=== PATIENT | female | born 1970 | race Caucasian/White ===

== ENCOUNTER 2019-11-22 13:07 | Emergency (ER) | payer OTHER, SELFPAY ==
[2019-11-22 13:45] VITALS: BP 127/73; PULSE 60; RESP 19; TEMP 37.1; O2SAT 99; BMI 20.2
--- NOTE | 2019-11-22 13:51 | DI.RAD.S_ITS ---
PROCEDURE: XR CHEST 2V INDICATIONS: cough TECHNIQUE: 2 views of the chest were acquired. COMPARISON: None. FINDINGS: Surgical changes and devices: None. Lungs and pleura: Lungs are clear. No pleural effusions or pneumothorax. Mediastinum: Mediastinal contours are normal. Heart size is normal. Bones and chest wall: No suspicious bony abnormalities. Soft tissues appear unremarkable. IMPRESSION: No acute cardiopulmonary findings. Dictated by: Diamond Armendariz M.D. on 11/22/2019 at 13:11 Approved by: Diamond Armendariz M.D. on 11/22/2019 at 13:12
--- NOTE | 2019-11-22 19:14 | ED_ITS ---
HPI - URI/Sore Throat General Chief Complaint: Upper Respiratory Symptoms Stated Complaint: per phys poss laryn/ bacterial infection Time Seen by Provider: 11/22/19 18:09 Source: patient Mode of arrival: Family Vehicle Limitations: no limitations History of Present Illness HPI Narrative: 49-year-old female former smoker with noncontributory medical history presents with her in the chief complaint of about a week's worth of runny nose, sneezing, sore throat with production of off colored sputum in the mornings only. She has had no nausea, vomiting or diarrhea. She has had no fever or chills. She has very little cough boat when she does it is dry and hacking. Over the past few days she has lost her voice but denies any significant pain with swallowing or sensation of mass in her throat. This [facility] patient developed some redness of her right eye with matting and some discharge. MD Complaint: cough, sore throat, rhinorrhea and nasal congestion Onset (ago): week(s) Duration: constant Relieving factors: nothing Exacerbating factors: nothing Description of mucous: green Able to tolerate fluids by mouth: Yes Treatments prior to arrival: acetaminophen, ibuprofen and cold medicine Related Data Previous Rx's Medication Instructions Recorded benzonatate [Tessalon Perles] 100 mg PO BID PRN #20 cap 11/22/19 Allergies Allergy/AdvReac Type Severity Reaction Status Date / Time AMOXICILLIN Allergy Mild Uncoded 11/22/19 13:50 From VICODIN Allergy Mild Uncoded 11/22/19 13:50 IODINE Allergy Mild Uncoded 11/22/19 13:50 SULFA Allergy Mild Uncoded 11/22/19 13:50 Review of Systems Constitutional Constitutional: Denies chills, Denies fatigue, Denies fever(s), Denies frequent falls, Denies lethargy and Denies weakness Eyes Eyes: Denies change in vision, Reports eye discharge, Denies irritation and Denies loss of vision ENT Ears, Nose, Mouth, and Throat: Reports change in voice, Denies dizziness, Reports nasal congestion, Denies neck pain, Denies sore throat and Denies throat swelling Cardiovascular Cardiovascular: Denies chest pain, Denies irregular heart rhythm, Denies lightheadedness, Denies palpitations, Denies dyspnea, Denies dyspnea on exertion and Denies orthopnea Respiratory Respiratory: Reports cough, Denies dyspnea, Denies dyspnea on exertion and Denies wheezing Gastrointestinal Gastrointestinal: Denies abdominal pain, Denies change in bowel habits, Denies diarrhea, Denies nausea and Denies vomiting Genitourinary Genitourinary: Denies hematuria, Denies flank pain, Denies urinary incontinence and Denies urinary urgency Musculoskeletal Musculoskeletal: Denies back pain, Denies muscle weakness, Denies neck pain, Denies numbness and Denies tingling Integumentary/Breasts Skin/Breast: Denies pruritus, Denies erythema, Denies rash and Denies wounds Neurologic Neurologic: Denies behavioral changes, Denies confusion, Denies dizziness, Denies frequent falls, Denies loss of vision, Denies numbness, Denies tingling and Denies weakness Psychiatric Psychiatric: Denies anxiety, Denies behavioral changes, Denies confusion, Denies depression, Denies homicidal ideation and Denies suicidal ideation Endocrine Endocrine: Denies fatigue, Denies flushing and Denies palpitations Hematologic/Lymphatic Hematologic/Lymphatic: Denies easy bruising Allergic/Immunologic Allergic/Immunologic: Denies urticaria, Denies throat swelling and Denies wheezing Patient History Social History Smoking Status: Former smoker Smoking Status: Former smoker alcohol intake frequency: holidays/special occasions only Substance Use Type: marijuana Exam Narrative Exam Narrative: GENERAL: [49] year old patient appears stated age. Well- nourished, well-developed patient, in mild distress. HEAD: Atraumatic. Normocephalic. EYES: Pupils equal round and reactive. Extraocular motions intact. R eye scleral injection, minimal exudate ENT: Nose without bleeding, purulent drainage. clear postnasal drip, without tonsillar hypertrophy or exudate. Airway patent. NECK: Trachea midline. Non tender CARDIOVASCULAR: Regular rate and rhythm without murmurs, gallops, or rubs. RESPIRATORY: Clear to auscultation. Breath sounds equal bilaterally. No wheezes, rales, or rhonchi. GASTROINTESTINAL: Abdomen soft, non-tender, nondistended. EXTREMITIES: No edema or joint tenderness. BACK: Nontender without deformity or crepitance. No flank tenderness. NEURO: AOx3. SKIN: No rash or erythema of visible areas Initial Vital Signs Initial Vital Signs: Vital Signs Temperature 98.7 F 11/22/19 13:45 Pulse Rate 60 11/22/19 13:45 Respiratory Rate 19 11/22/19 13:45 Blood Pressure 127/73 11/22/19 13:45 Pulse Oximetry 99 11/22/19 13:45 Course Orders Ordered: Discontinued Medications Erythromycin (Erythromycin Ophth Oint) 1 applic EYE-RIGHT NOW ONE Stop: 11/22/19 19:00 Last Admin: 11/22/19 19:34 Dose: 1 applic Documented by: LOLY Vital Signs Vital signs: Vital Signs - 8 hr 11/22/19 13:45 Temperature 98.7 F Pulse Rate 60 Respiratory Rate 19 Blood Pressure 127/73 Pulse Oximetry 99 MDM - URI/Sore Throat Lab Data Labs: Point of Care Testing Rapid Strep A Negative Discharge Plan Departure Patient Disposition: Home Clinical Impression: Acute viral pharyngitis Conjunctivitis Qualifiers: Conjunctivitis type: acute Acute conjunctivitis type: bacterial Laterality: right Qualified Code(s): H10.31 - Unspecified acute conjunctivitis, right eye Discharge Date/Time: 11/22/19 20:51 Instructions: DI for Viral Pharyngitis Activity Restrictions/Additional Instructions: *You have been diagnosed with [acute viral pharyngitis] *What to do: *Take medications as directed *Follow up with your primary care provider in 2-3 days, call for an appointment. Let them know you were seen in the Emergency Department and that we ask that you be seen in follow up *Return to ER if you should have any new, worsening or concerning symptoms Prescriptions: New benzonatate [Tessalon Perles] 100 mg capsule 100 mg PO BID PRN (Reason: cough) Qty: 20 RF: 0
[2019-11-22] MEDS: ERYTHROMYCIN OPHTH 1 GM OINT 1 APPLIC EYE-RIGHT (19:34)
== END 2019-11-22 20:51 | disposition home or self-care (01) ==
PROVIDERS: Emergency Provider Emergency Medicine
DX: J02.9 Acute pharyngitis, unspecified (principal); H10.31 Unspecified acute conjunctivitis, right eye; R05 Cough
CPT/HCPCS: 71046; 87880; 99283

== ENCOUNTER → 2022-08-30 14:33 | Outpatient (CLI) | payer OTHER, SELFPAY ==
[2022-08-30 15:43] LABS: Add Manual Diff / Slide Review NO; Basophils Absolute Auto 100 /uL (0-100); Basophils Percent Auto 0.8 % (0-2); Eosinophils Absolute Auto 400 /uL (0-450); Eosinophils Percent Auto 6.3 % (2-4); Hemoglobin 12.1 g/dL (12.0-16.0); Lymphocytes Absolute Auto 2700 /uL (1100-4500); Lymphocytes Percent Auto 40.1 % (25-40); Mean Corpuscular HGB Conc 34.6 % (30-36); Mean Corpuscular Hemoglobin 32.6 PG (26-34); Mean Corpuscular Volume 94.1 fL (80-100); Monocytes Absolute Auto 500 /uL (0-900); Monocytes Percent Auto 6.9 % (3-14); Neutrophils Absolute Auto 3100 /uL (1500-7000); Neutrophils Percent Auto 45.9 % (50-75); Platelet Count 249 X10^3/uL (150-400); Red Blood Cell Count 3.72 X10^6/uL (4.0-5.2); White Blood Cell Count 6.8 X10^3/uL (4.5-11.0)
[2022-08-30 15:48] LABS: Hemoglobin A1C% w Est Avg Glu 5.3 % (4.0-6.0)
[2022-08-30 15:52] LABS: BUN Creatinine Ratio 25.4 (6-22); Blood Urea Nitrogen 16 mg/dL (7-17); Calcium 8.8 mg/dL (8.4-10.2); Carbon Dioxide 27 mmol/L (22-32); Chloride 102 mmol/L (98-107); Estimated Glomerular Filt Rate > 60 mL/min (>60); Glucose 108 mg/dL (70-100); HEMOLYSIS < 15 (0-50); Potassium 3.6 mmol/L (3.4-5.1); Sodium 139 mmol/L (137-145)
== END ==
PROVIDERS: PCP Family Medicine; Referring Provider Orthopaedic Surgery Orthopaedic Surgery of the Spine; Visit Provider Orthopaedic Surgery Orthopaedic Surgery of the Spine
DX: Z01.818 Encounter for other preprocedural examination (principal); Z01.812 Encounter for preprocedural laboratory examination; R73.9 Hyperglycemia, unspecified
CPT/HCPCS: 36415; 80048; 83036; 85025; 93005; 93010

== ENCOUNTER → 2022-09-01 13:34 | Outpatient (CLI) | payer OTHER, SELFPAY ==
[2022-09-01 14:34] LABS: COVID19 -Nasal RAPID Negative (Negative)
== END ==
PROVIDERS: PCP Family Medicine; Referring Provider Orthopaedic Surgery Orthopaedic Surgery of the Spine; Visit Provider Orthopaedic Surgery Orthopaedic Surgery of the Spine
DX: Z20.822 Contact with and (suspected) exposure to COVID-19 (principal)
CPT/HCPCS: 87635; C9803

== ENCOUNTER 2022-09-04 06:01 | Inpatient (IN) | payer OTHER, SELFPAY ==
[2022-08-30 14:55] VITALS: BMI 26.4
[2022-09-04] VITALS (16 sets, daily range): BP systolic 101–149; BP diastolic 67–102; PULSE 65–91; RESP 10–19; TEMP 36.1–36.6; O2SAT 93–100; BMI 26.4
[2022-09-04] MEDS: LACTATED RINGERS 1,000 ML 42 ML IV (07:19)
--- NOTE | 2022-09-04 07:47 | PM.PREOP ---
Pre-operative Note COVID-19 COVID-19 status: Negative Result date/Date tested (Pos, Neg/Pending): 09/03/22 Criteria for continued procedure: Expected advancement of disease process, Possibility delay results in more complex future surgery or treatment, Increased loss of function, Continuing or worsening of significant or severe pain, Deterioration of the patient's condition or overall health and Delay expected to result in less-positive ultimate med/surg outcome Interval Note History & Physical reviewed/Exam performed by Physician: Yes Changes to H&P: No
[2022-09-04] MEDS: SCOPOLAMINE 1 PATCH TOP (07:49)
[2022-09-04] MEDS: CEFAZOLIN 2 GM/100 ML PREMIX 100 ML IV (08:01)
--- NOTE | 2022-09-04 08:36 | SUR.OPER ---
Supine, head on gel donut. Arms padded with gel pads, tucked at sides, towel roll under shoulders. Safety belt at thigh. Legs uncrossed. Tape to forehead and shoulders to bed.
[2022-09-04] MEDS: BUPIVACAINE 0.5% W/ EPI (PF) 30 ML VIAL INJ (08:58)
--- NOTE | 2022-09-04 10:51 | DI.RAD.S_ITS ---
PROCEDURE: XR CERVICAL SPINE 2V OR 3V INDICATIONS: C4-5, C5-6, C6-7 ACDF TECHNIQUE: 3 intraoperative fluoroscopic view(s) of the cervical spine were acquired. COMPARISON: None. FINDINGS: 3 fluoroscopic views of the cervical spine were acquired intraoperatively. There are postsurgical changes from anterior cervical discectomy and fusion from C4 through C7. Interbody disc spacers/grafts noted at C4-5, C5-6, and C6-7. Postoperative alignment appears anatomic. Patient is intubated. IMPRESSION: Intraoperative fluoroscopic support for ACDF of the cervical spine from C4 through C7. Please see separate operative note for further details. Dictated by: Carloz Pack M.D. on 09/04/2022 at 11:50 Approved by: Carloz Pack M.D. on 09/04/2022 at 11:52
[2022-09-04] MEDS: fentaNYL 100 MCG/2 ML INJ IV ×2 (11:01→11:10)
[2022-09-04] MEDS: ONDANSETRON 4 MG/2 ML INJ IV (11:04)
--- NOTE | 2022-09-04 11:12 | PM.OP.1 ---
Operative Date/Time/Diagnoses Date of procedure: 09/04/22 Time of procedure: 07:40 Pre-op diagnosis: 1. C4-5, C5-6, C6-7 spinal stenosis 2. C4-5, C5-6, C6-7 spondylosis with radiculopathy Post-op diagnosis: same Procedure & Clinicians Procedure: 1. C4-5 C5-6 C6-7 anterior cervical diskectomy and fusion 2. C4-5 C5-6 C6-7 anterior interbody cage placement 3. C4-5 C5-6 C6-7 anterior instrumentation with plate and screw placement in C4-C5-C6 and C7 vertebrae 4. Utilization of microsurgical technique and operating microscope Same procedure as scheduled: Yes Indications: Patient has been having chronic neck pain and worsening cervical radiculopathy. Patient failed multiple conservative management with worsening pain weakness and numbness in her upper extremity. Patient has been having difficulty performing activity of daily living. After discussing risks benefits of treatment options, patient elected proceed with surgery. Surgeon: Lucretia Tracey Transplant Nurse Practitioner: Mary Ann Hector Click Yes if Unassisted: No Anesthesia Type: General Operative Notes Closure Type: primary Specimen(s): none sent Prosthetic devices, grafts, tissues, transplants, or devices: Globus Extend Plate, HedronC cages Applied: catheter Estimated Blood Loss (mL): 10 Blood products transfused: none Procedure in detail: Patient was seen in the preoperative area. Risks and benefits of the surgery was discussed with the patient. Operative consent was obtained and placed in the chart. Patient was then taken to the operative room. Prophylactic antibiotic was given less than 0.5 hr prior to skin incision. General anesthesia was administered. Patient was placed into a supine position on her radiolucent table. Bilateral shoulders were taped down to allow proper C-arm imaging. Anterior cervical area was prepped and draped in a sterile fashion. Time-out was performed at this time. Using lateral C-arm imaging, the level between C4 and C7 was identified and marked on patient's neck. A oblique incision from midline towards medial border of sternocleidomastoid muscle was made. The platysma muscle was incised in line with skin incision. Metzenbaum scissor was used to develop the plane between the medial border of sternocleidomastoid and the strap muscles medially. The carotid sheath and its contents were identified and protected behind the hand-held retractor during the entire case. The plane between the carotid sheath and strap muscles was developed with Metzenbaum scissors. Dissection was made down to the level of the anterior cervical fascia. Longus colli muscle was incised on the anterior aspect of vertebral bodies bilaterally from C4-C7. Spinal needle was placed into the C4-5 disc space and confirmed with lateral C-arm imaging. Self-retaining retractors were then placed protecting the carotid sheath the sheath laterally and the esophagus medially while exposing the surgical field between C4-C7 vertebrae. Using microsurgical technique and operative microscope, anterior cervical diskectomy was performed at C4-5 C5-6 and C6-7 level. This was done by removing the disc material, removing the anterior and posterior osteophytes posterior longitudinal ligaments along with performing bilateral foraminotomies at all 3 levels. Patient was found to have severe central and foraminal stenosis at all 3 levels. Patient's stenosis was fully decompressed after decompression was completed. After the diskectomy was completed, 3 anterior interbody cages were obtained. The cages were packed with globus Trifecta bone grafting material. One cage each along with the bone grafting material was then packed into the interbody spaces from C4-C7 with one cage into each interbody level. Patient had large anterior osteophytes at C5-C6 and C7 vertebrae. Large osteophytes was removed using Leksell rongeur in order to place anterior cervical plate. After the cages were placed, the anterior cervical plate was stabilized to the C4-C7 vertebrae using 2 screws at each each level. Total 8 screws were placed. After confirming placement of the hardware with AP and lateral C-arm imaging, the screws were locked into the plate using the locking mechanism and torque limiting screwdriver. After the hardware was placed and confirmed with AP and lateral C-arm imaging, the wound was irrigated with sterile normal saline. Hemostasis was accomplished using bipolar cautery. Carotid sheath contents and the esophagus was inspected and visualized and identified to be well protected throughout the entire case prior to closure. Platysma muscle and the subcutaneous tissue was closed with 2-0 Vicryl. The skin was closed with 4-0 Monocryl and Steri-Strips. Patient tolerated the procedure well. Patient was transferred recovery room in stable condition. There were no complications. Complications: none Post-operative Condition: stable Disposition: PACU Plan for aftercare: Admit to inpatient hospital
[2022-09-04] MEDS: OXYCODONE/ACETAMINOPHEN 5/325 TABLET 1 TAB PO (11:24)
[2022-09-04] MEDS: hydrOXYzine pamoate 25 MG CAPSULE PO ×3 (11:49→22:54)
--- NOTE | 2022-09-04 12:10 | SUR.PHASEI ---
Pt transferred to room 218 in bed by this RN. Pt awake, alert, soft colar in place. Trachea midline. 1 bag of belongings. SBAR report to Jacque RN with bedside handoff.
[2022-09-04] MEDS: HYDROMORPHONE 0.5 MG INJ IV ×2 (12:12→15:47)
[2022-09-04] MEDS: SODIUM CHLORIDE 0.9% 1,000 ML 100 ML IV ×2 (12:13→22:59)
[2022-09-04] MEDS: MAG HYDROX/ALUM/SIMETH 30 ML UDC PO (13:01)
[2022-09-04] MEDS: MAGNESIUM HYDROXIDE 30 ML UDC PO (13:01)
--- NOTE | 2022-09-04 15:25 | PT.IIE ---
Current Diagnoses Spinal stenosis, cervical region (09/04/22) Other cervical disc displacement, unspecified cervical region (09/04/22) Surgery Performed Operation Date: 09/04/22 07:45 Actual Procedures p C4-5, C5-6, C6-7 ACDF w. anterior instrumentation - Lucretia Tracey MD Surgical History (Last Updated 08/30/22 @ 15:05 by Mery Glass, RN) History of Hx of appendectomy Hx of shoulder surgery S/P epidural steroid injection Medical History (Last Updated 08/30/22 @ 15:05 by Mery Glass RN) Arthritis Cervical disc herniation Cervical spinal stenosis Thyroid disease Physical Therapy Inpatient Evaluation/Re-Eval M1 PT/OT-IP Prior Functional Status Start: 09/04/22 13:34 Freq: NEEDED Status: Active Protocol: Document 09/04/22 15:25 AW (Rec: 09/04/22 15:59 AW [id number]) Medical Review Prior Functional Status Medical History Reviewed Yes Communication WNL Mobility and Gait Independent Activities of Daily Living and IADL's Independent Social History Household Members spouse Living Arrangements House Number of Floors (Floors) One Floor Number of Stairs To Enter/Railing? 3 PRISCILLA no rail Home Environment Standard Height Toilet,Tub/ Shower Home Equipment Grab Bars In Shower Employment Status [employer] Employed Additional Social History Comment Pt lives in [place] with her spouse, Alex. 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 Her spouse recently retired from the [employer] and does not start a new job until early September. He will be available and able to assist as needed. M2 PT-IP Current Condition Start: 09/04/22 13:34 Freq: NEEDED Status: Active Protocol: Document 09/04/22 15:25 AW (Rec: 09/04/22 15:59 AW [id number]) Physical Therapy Current Condition Current Condition Evaluation Date 09/04/22 Treatment Diagnosis s/p C4-5 5-6 6-7 ACDF, difficulty in walking Onset Date 09/04/22 M3 PT-IP Subjective Start: 09/04/22 13:34 Freq: NEEDED Status: Active Protocol: Document 09/04/22 15:25 AW (Rec: 09/04/22 15:59 AW [id number]) Subjective Physical Therapy Visit Type Type Initial Evaluation Visit Start Time 15:00 Visit Stop Time 15:25 Total Visit Minutes 25 Physical Therapy Visit Comments Patient Comments Pt is willing to participate with PT Therapy Pain Assessment Pain When Pain Assessed At Rest Pain Present Pain Present Pain Reported Location neck Intensity 5 Scale Used Numeric (0 - 10) Pain Management Techniques Modification of Treatment,Re- positioning,Timing of Activity with Medications M4 PT-IP Mobility and Gait Start: 09/04/22 13:34 Freq: NEEDED Status: Active Protocol: Document 09/04/22 15:25 AW (Rec: 09/04/22 15:59 AW [id number]) PT-Bed Mobility Assessment Rolling Type of Rolling Log Rolling,Roll to Right Level of Assist Contact Guard Assistance Supine to Sit Supine to Sit Contact Guard Assistance PT-Transfer Assessment Sit to and From Stand Sit to and from Stand Contact Guard Assistance,Use of Upper Extremities Equipment Transfer Assistive Device None,Gait Belt Orthotic/Prosthetic Devices or Brace: Yes Transfers Transfer Destination Chair,Toilet Transfer Technique pt ambulated without AD Transfer Ability Level of Assist Standby Assistance Comments Mobility Comments Pt was lying in bed as PT arrived. Pt felt foggy but not dizzy or nauseous. BP 123/ 78 HR 68 SpO2 95% RA. Educated pt on neck precautions including log roll for bed mobility. She needed CGA for log roll and SL to sit. She stood CGA and walked around the bed to the toilet SBA/CGA. After using the toilet, she walked to the sink SBA and washed her hands. PT educated pt on doffing/donning soft collar. Pt stated she was feeling off and starting to worry about pain including possible chest pain. She sat on the chair. BP was 144/89 HR 71 SpO2 94%. Pt agreed to sit up on the chair with call light in reach. PT informed RN about pt's pain concerns. Gait Assessment Gait Gait Assistance Required: Standby Assistance,Contact Guard Assist Distance (Feet) 30 Assistive Devices Assistive Device None,Gait Belt Orthotic/Prosthetic Devices or Brace: Yes Gait Deviations General Gait Pattern Decreased Stride Length, Decreased Feet Clearance Factors Limiting Gait Function Factors Limiting Gait Function Decreased Activity Tolerance, Limited Range of Motion,Pain Comments Gait Comments Pt slightly unsteady and feeling weak but does not need AD. Stair Climbing Assessment Comments Stair Climbing Comments Not assessed. PT-Balance Assessment Sitting Balance and Reactions Static Sitting Balance Ability Good Dynamic Sitting Balance Ability Good Standing Balance and Reactions Static Standing Balance Ability Good Dynamic Standing Balance Ability Fair Device Used no AD Comments Other Balance Tests/Deviations/Treatment Instructed pt to take care : with soft collar on due to restriction in lower field of vision. M5 PT-IP Objective Assessments Start: 09/04/22 13:34 Freq: NEEDED Status: Active Protocol: Document 09/04/22 15:25 AW (Rec: 09/04/22 15:59 AW [id number]) Orientation Orientation/Cognition Level of Alertness Alert Orientation Name,Day of Week,Place, Situation Safety Awareness Understands Safety Issues Memory Description No Deficits Noted Gross Range of Motion Lower Extremity ROM Assessment Within Functional Limits Strength Lower Extremity Strength Assessment Within Functional Limits Sensation Assessment Sensation Gross Sensation WNL Comments Sensation Comments Pt denies mumbness in UE's M6 PT-IP Treatment Start: 09/04/22 13:34 Freq: NEEDED Status: Active Protocol: Document 09/04/22 15:25 AW (Rec: 09/04/22 15:59 AW [id number]) Physical Therapy Treatment Education Education Provided Precautions,Post-Op Packet, Safety Other Treatments Other Treatment Performed Educated pt on post-op precautions and use of soft collar, including donning and doffing. M7 PT-IP Assessment and Plan Start: 09/04/22 13:34 Freq: NEEDED Status: Active Protocol: Document 09/04/22 15:25 AW (Rec: 09/04/22 15:59 AW [id number]) PT Summary Assessment and Plan Potential Rehabilitation Potential Excellent Status of Condition at Evaluation Evolving Summary Impairments Pain,ROM,Balance,Sensation,Bed Mobility,Transfers,Gait Assessment Summary Martine is a 52 yo woman seen for PT evaluation on POD0 following ACDF at C4-5 C5-6 and C6-7. She is independent in all regards at baseline. 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 She required no more than CGA for mobility at this assessment. She would benefit from at least one more PT session to review precautions, increase gait distance, and do stair training. Pt will be safe to discharge home with assist once medically cleared. She is encouraged to pursue outpatient PT at her post-op appointment. Goals Bed Mobility Goal Independent Transfer Goal Independent Gait Goal Independent Gait Distance 200 Other Goals -up/down 3 steps no rail SBA Frequency of Treatment Frequency Of Treatment Twice a Day Treatment Plan Physical Therapy Treatment Plan Bed Mobility Training,Transfer Training,Gait Training, Therapeutic Exercise,Balance Retraining,Post Op Education, Discharge Planning,Hot or Cold Pack,Neuromuscular Re-ed Precautions Cervical Spine Precautions Soft Collar for Comfort,No Heavy Lifting,Log Roll Recommendations To Nursing Amount of Assist Needed Standby Assistance Discharge Recommendations PT Discharge Recommendations Home with Assistance, Outpatient PT Transportation Needs at Discharge Private Vehicle
[2022-09-04] MEDS: OXYCODONE IR 5 MG TABLET PO ×3 (15:47→23:24)
[2022-09-04] MEDS: CEFAZOLIN VIAL 1 GM in SODIUM CHLORIDE 0.9% 100 ML IV ×2 (16:00→23:20)
[2022-09-04] MEDS: SENNOSIDES 8.6 MG TABLET 17.2 MG PO (20:06)
[2022-09-04] MEDS: DOCUSATE 100 MG CAPSULE PO (20:07)
--- NOTE | 2022-09-05 00:10 | PC.NURSE ---
Pt awake resting comfortably. at bedside.
[2022-09-05 01:57] VITALS: BP 114/70; PULSE 66; RESP 19; TEMP 36.5; O2SAT 95
[2022-09-05] MEDS: hydrOXYzine pamoate 25 MG CAPSULE PO ×2 (02:11→10:25)
[2022-09-05] MEDS: OXYCODONE IR 5 MG TABLET PO ×3 (02:11→09:15)
[2022-09-05] MEDS: LEVOTHYROXINE 75 MCG TABLET PO (05:39)
--- NOTE | 2022-09-05 07:12 | P.DS_ITS ---
History of Present Illness History of Present Illness Date Patient Seen: 09/05/22 Time Patient Seen: 07:12 Chief complaint: Cervical Fusion Anterior Narrative: Operative Date/Time/Diagnoses Date of procedure: 09/04/22 Time of procedure: 07:40 Pre-op diagnosis: 1. C4-5, C5-6, C6-7 spinal stenosis 2. C4-5, C5-6, C6-7 spondylosis with radiculopathy Post-op diagnosis: same Procedure & Clinicians Procedure: 1.? C4-5 C5-6 C6-7 anterior cervical diskectomy and fusion 2.? C4-5 C5-6 C6-7 anterior interbody cage placement 3.? C4-5 C5-6 C6-7 anterior instrumentation with plate and screw placement in C4-C5-C6 and C7 vertebrae 4.? Utilization of microsurgical technique and operating microscope Same procedure as scheduled: Yes Indications: Patient has been having chronic neck pain and worsening cervical radiculopathy. Patient failed multiple conservative management with worsening pain weakness and numbness in her upper extremity.? Patient has been having difficulty performing activity of daily living.? After discussing risks benefits of treatment options, patient elected proceed with surgery. Surgeon: Lucretia Tracey Pastry Cook Helper: Mary Ann Hector Click Yes if Unassisted: No Anesthesia Type: General Operative Notes Closure Type: primary Specimen(s): none sent Prosthetic devices, grafts, tissues, transplants, or devices: Globus Extend Plate, HedronC cages Applied: catheter Estimated Blood Loss (mL): 10 Blood products transfused: none Discharge Providers Provider Date of admission: 09/04/22 06:01 Discharge Date: 09/05/22 Primary care physician: Juan Manuel Mcnair DO Consults: 09/04/22 11:42 Consult to Occupational Therapy Evaluate & Treat Comment: Physician Instructions: Evaluate and treat Consult to Physical Therapy Evaluate & Treat Comment: Physician Instructions: Evaluate and Treat Discharge provider: Mary Ann Hector PA-C Summary Hospital Course Discharge Diagnosis: Cervical stenosis and spondylosis w/ radiculopathy, s/p cervical fusion Hospital Course: [facility] course was unremarkable. On POD# 1 she was feeling well and wanted to go home. She was tolerating soft foods. She was urinating without difficulty; she did complain of some pain with urination, but felt this was likely due to intraop catheterization. Her pain was well-controlled with oral medication. Exam Vital Signs (past 8 hours): - 09/05/22 01:57 Temperature 97.7 F Pulse Rate 66 Respiratory Rate 19 Blood Pressure 114/70 Pulse Oximetry 95 Oxygen Flow Rate 0 Oxygen Delivery Method Room Air Oxygen Flow Rate 0 Narrative Exam Narrative: 5/5 furniture refinisher strength, 5/5 strength in biceps, triceps, deltoids. Sensation to light touch intact throughout BUE. Dressing placed intraoperatively CDI. [facility] Medical History (Updated 08/30/22 @ 15:05 by Mery Glass RN) Arthritis Cervical disc herniation Cervical spinal stenosis Thyroid disease Surgical History (Updated 09/05/22 @ 07:17 by Mary Ann Hector PA-C) History of Hx of appendectomy Hx of shoulder surgery S/P epidural steroid injection Social History household members: spouse Smoking Status: Former smoker alcohol intake: current Discharge Assessment & Plan Assessment and Plan Assessment: Cervical stenosis and spondylosis w/ radiculopathy, s/p cervical fusion Plan of Treatment: Discharge home, f/u in office in 2 weeks. Discharge Plan Discharge Plan Patient Disposition: Home Discharge orders & Medications Prescriptions: New oxycodone 5 mg Tablet 5 mg PO Q4-6H PRN (Reason: Pain, Moderate (4-6)) Qty: 60 0RF hydroxyzine pamoate 25 mg Capsule 25 mg PO Q4HR PRN (Reason: muscle spasm) Qty: 120 0RF docusate sodium 100 mg Capsule 100 mg PO BID PRN (Reason: constipation) Qty: 60 1RF Continued levothyroxine [Synthroid] 50 mcg tablet 75 mcg PO DAILY loratadine 10 mg tablet 10 mg PO DAILY fluoxetine [Prozac] 10 mg capsule 10 mg PO DAILY Follow up/Referrals: Juan Manuel Mcnair DO [Primary Care Provider] - Lucretia Tracey MD [Physician] - As previously scheduled (Follow up w/ Marleen Hernandez PA-C, on 09/20/2021 @ 2:20 pm at [facility] office in [place]. You can discuss further needs for return to work documentation at that time.) Diet/Activity/Treatments Diet: Diet as Tolerated Diet comment: Soft, moist foods for first 3-5 days after surgery. Advance as tolerated. Activity: No lifting more than 10 pounds. Soft collar is for comfort; recommend wearing while sitting and standing; may have off to bathe and eat. Some people feel more comfortable sleeping with it on, but this is not necessary if it is uncomfortable for you. Cold/Heat Therapy: Heating pad to back of neck as needed for pain. Skin/Wound/Dressing Care Dressing: Leave dressing in place until follow up in office. If it becomes wet or dirty inside, may remove; you don't need to replace it. Leave steri-strips in place until follow up appointment. Visit Report/Discharge Packet Instructions: DI for Anterior Cervical Discectomy and Fusion, DI for Prescription Opioid Use Stand Alone Forms: Surgery Discharge Discharge Data Primary Care Provider: Juan Manuel Mcnair VTE Deep Vein Thrombosis/Pulmonary Embolism Present on Admission: No
[2022-09-05 07:54] VITALS: BP 130/74; PULSE 74; RESP 16; TEMP 36.9; O2SAT 97
[2022-09-05] MEDS: DOCUSATE 100 MG CAPSULE PO (08:56)
[2022-09-05] MEDS: FLUoxetine 10 MG CAPSULE PO (08:56)
[2022-09-05] MEDS: LORATADINE 10 MG TABLET PO (08:57)
--- NOTE | 2022-09-05 09:15 | OT.IP.EVAL ---
Current Diagnoses Spinal stenosis, cervical region (09/04/22) Other cervical disc displacement, unspecified cervical region (09/04/22) Arthrodesis status (09/04/22) Surgery Performed Operation Date: 09/04/22 07:45 Actual Procedures p C4-5, C5-6, C6-7 ACDF w. anterior instrumentation - Lucretia Tracey MD Past Medical History (Last Updated 08/30/22 @ 15:05 by Mery Glass, RN) Arthritis Cervical disc herniation Cervical spinal stenosis Thyroid disease Surgical History (Last Updated 08/30/22 @ 15:05 by Mery Glass RN) History of Hx of appendectomy Hx of shoulder surgery S/P epidural steroid injection Occupational Therapy Inpatient Evaluation/Re-Eval M1 PT/OT-IP Prior Functional Status Start: 09/04/22 13:34 Freq: NEEDED Status: Active Protocol: Document 09/05/22 08:55 [facility] (Rec: 09/05/22 09:35 [facility] [id number]) Medical Review Prior Functional Status Medical History Reviewed Yes Communication WNL Mobility and Gait Independent Activities of Daily Living and IADL's Independent Social History Household Members spouse Living Arrangements House Number of Floors (Floors) One Floor Number of Stairs To Enter/Railing? 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 Her spouse recently retired from the [employer] and does not start a new job until early September. He will be available and able to assist as needed. M2 OT-IP Current Condition Start: 09/05/22 09:24 Freq: Status: Active Protocol: Document 09/05/22 08:55 [facility] (Rec: 09/05/22 09:35 [facility] [id number]) Occupational Therapy Current Condition Current Condition Evaluation Date 09/05/22 Treatment Diagnosis S/p C4-5, C5-6,C6-7 ACDF Diagnosis Onset Date 09/04/22 Post Operative Precautions Cervical Spine Precautions Soft Collar for Comfort,Soft Collar at all Times,No Heavy Lifting,Log Roll M3 OT- IP Subjective and Pain Start: 09/05/22 09:24 Freq: Status: Active Protocol: Document 09/05/22 08:55 [facility] (Rec: 09/05/22 09:35 [facility] [id number]) OT- Subjective Occupational Therapy Visit Type Type Initial Evaluation Visit Start Time 08:55 Visit Stop Time 09:15 Total Visit Minutes 20 Occupational Therapy Visit Comments Patient Comments Pt not wanting to shower but agreed to get dressed. Patient/Caregiver Goals TO go home OT Pain Assessment Pain When Pain Assessed At Rest Pain Present Pain Present Pain Reported Location neck Intensity 5 Scale Used Numeric (0 - 10) M4 OT- IP ADL's Start: 09/05/22 09:24 Freq: Status: Active Protocol: Document 09/05/22 08:55 [facility] (Rec: 09/05/22 09:35 [facility] [id number]) OT [id number] Comments OT Self-Feeding Comments Went over with pt to eat softer foods, chew food thoroughly, cold foods and eat upright. OT ADL-Grooming Comments OT Grooming Comments NOt performed OT ADL-Oral Care General Eval Oral Care Ability Independent Areas of Assistance Retrieving/Set-Up of Items Comments Oral Care Comments Initial vc to spit into a cup versus hinge at her hips. OT ADL-Dressing General Eval Upper Body Dressing Ability Maximum Assistance Lower Body Dressing Ability Moderate Assistance Areas Needing Assistance Socks,Shoes Comments OT Dressing Comments VC to sit for LB dressing needs and to put on items of underwears and pants and then stand to pull up. Pt's assisted with her socks, bra , and shirt. OT ADL-Toileting Comments OT Toileting Comments Not performed. OT ADL-Bathing Comments OT Bathing Comments Suggested for her to be present and may also benefit from a shower chair. M5 OT- IP IADL's Start: 09/05/22 09:24 Freq: Status: Active Protocol: Document 09/05/22 08:55 [facility] (Rec: 09/05/22 09:35 [facility] [id number]) OT-Instrumental Activities of Daily Living Deficits IADL Deficits Identified Deficits Home Safety Awareness Awareness of Need for Assistance at Home Good Awareness Ability to Problem Solve Emergency Able to Problem Solve Situations Home Safety Comments Pt has a very supportive that will assist with all needs as needed. M6 OT- IP Functional Cognition Start: 09/05/22 09:24 Freq: Status: Active Protocol: Document 09/05/22 08:55 [facility] (Rec: 09/05/22 09:35 [facility] [id number]) Cognitive Factors Limiting Selfcare Function Cognitive Ability Level of Alertness Alert Patient Orientation Name,Age,Birthday,Month,Date, Year,Day of Week,Place, Situation Attention Span Ability Capable of Focused Attention, Capable of Sustained Attention Ability to Follow Commands Able to Follow Multi-Step Commands Cognitive Comments Cognitive Assessment Comments Pt intact. M7 OT- IP Mobility and Balance Start: 09/05/22 09:24 Freq: Status: Active Protocol: Document 09/05/22 08:55 [facility] (Rec: 09/05/22 09:35 [facility] [id number]) OT- Bed Mobility Assessment Rolling Level of Assistance Standby Assistance Supine to Sit Supine to Sit Assist Standby Assistance Sit to Supine Sit to Supine Assist Standby Assistance OT-Transfer Assessment Sit to and From Stand Sit to and from Stand Independent Transfers Transfer Ability Independent Comments Mobility Comments Pt needing initial vc for log rolling. OT- Balance Assessment Sitting Balance and Reactions Static Sitting Balance Ability Normal Dynamic Sitting Balance Ability Normal Standing Balance and Reactions Static Standing Balance Ability Good Dynamic Standing Balance Ability Good M8 OT- IP Objective Assessments Start: 09/05/22 09:24 Freq: Status: Active Protocol: Document 09/05/22 08:55 [facility] (Rec: 09/05/22 09:35 [facility] [id number]) OT-Muscle Tone Assessment Muscle Tone WNL Yes M9 OT- IP Assessment and Plan Start: 09/05/22 09:24 Freq: Status: Active Protocol: Document 09/05/22 08:55 [facility] (Rec: 09/05/22 09:35 [facility] [id number]) OT Summary Assessment and Plan Potential Rehabilitation Potential Excellent Analytic Complexity at Evaluation Low Summary OT Impairments Pain,Dressing,Toileting, Bathing Progress Towards Goals Progressing Toward Goals Assessment Summary Pt low complexity and main barriers are pain and needing some assist for ADL needs. Pt has a supportive that will assist with her needs. Pt already able to walk in the room on her own and able to follow cervical precautions for her needs. To go home with her to assist. Goals Dressing Goal Independent Toileting Goal Independent Bathing Goal Independent Days to Meet Goals 2 Frequency of Treatment Frequency Of Treatment Once a Day Treatment Plan OT Treatment Plan ADL Training,Functional Mobility,Patient/Family Education,Discharge Planning Other Treatment Recommendations and Next shower chair? Treatment Focus Discharge Recommendations OT Discharge Recommendations Home with Assistance Transportation Needs at Discharge Private Vehicle
--- NOTE | 2022-09-05 09:51 | PT.IPTN ---
Current Diagnoses Spinal stenosis, cervical region (09/04/22) Other cervical disc displacement, unspecified cervical region (09/04/22) Arthrodesis status (09/04/22) Surgery Performed Operation Date: 09/04/22 07:45 Actual Procedures p C4-5, C5-6, C6-7 ACDF w. anterior instrumentation - Lucretia Tracey MD Physical Therapy Treatment Note M2 PT-IP Current Condition Start: 09/04/22 13:34 Freq: NEEDED Status: Discharge Protocol: Document 09/05/22 09:28 [facility] (Rec: 09/05/22 17:06 [facility] [id number]) Physical Therapy Current Condition Current Condition Evaluation Date 09/04/22 Treatment Diagnosis s/p C4-5 5-6 6-7 ACDF, difficulty in walking Onset Date 09/04/22 M3 PT-IP Subjective Start: 09/04/22 13:34 Freq: NEEDED Status: Discharge Protocol: Document 09/05/22 09:28 [facility] (Rec: 09/05/22 17:06 SP [id number]) Subjective Physical Therapy Visit Type Type Treatment Note Visit Start Time 09:28 Visit Stop Time 09:51 Total Visit Minutes 33 Notes in room when arrived, complete CGT with pt. 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 1 Physical Therapy Visit Comments Patient Comments Pt is willing to participate with PT Patient Goals return home with to assist her Therapy Pain Assessment Pain When Pain Assessed During Mobility Pain Present Pain Present Pain Reported Location neck Intensity 4 Scale Used Numeric (0 - 10) Description With Movement Pain Behaviors Facial Grimacing,Guarding Pain Management Techniques Modification of Treatment,Re- positioning,Timing of Activity with Medications M4 PT-IP Mobility and Gait Start: 09/04/22 13:34 Freq: NEEDED Status: Discharge Protocol: Document 09/05/22 09:28 [facility] (Rec: 09/05/22 17:06 SP [id number]) PT-Bed Mobility Assessment Rolling Type of Rolling Log Rolling,Roll to Right Level of Assist Standby Assistance Supine to Sit Supine to Sit Standby Assistance Sit to Supine Sit to Supine Standby Assistance Scooting Scooting to Edge of Bed Independent PT-Transfer Assessment Sit to and From Stand Sit to and from Stand Standby Assistance,Contact Guard Assistance,Use of Upper Extremities Equipment Transfer Assistive Device None,Gait Belt Orthotic/Prosthetic Devices or Brace: Yes Transfers Transfer Destination Bed,Chair Transfer Technique pt ambulated without AD Transfer Ability Level of Assist Standby Assistance Comments Mobility Comments Pt was seated at EOB when arrived, collar doffed on sink counter. Pt elected to keep collar off after offered during bed mob sit<>L SL> supine>L SL>sit reassessment: SBA w/ BUE but reported pain. donned gait belt, provided soft collar for mobiltiy support ease/ less discomfort in neck, pt agreed after bed mobility. Sit > stand SBA/ Mod I gait around room stable no LOB. Gait further distance in hallway no AD SBA provided by ( little WBOS than her normal discussed but stable) to stairs, completed asc/ descended 3 stairs CGA via receiprocal stepping ed can provide FOOD PREPARER if needed for stability but didn't this tx. Pt returned to room total 300ft. Pt is ok I in room, SBA/CGA during outdoor mobility for safety with /pt in agreement. Pt is ok to return home with to assist. Discussed if feels need PT can ask physicians for referral. Gait Assessment Gait Gait Assistance Required: Standby Assistance,Contact Guard Assist Distance (Feet) 300 Able to Maintain Weight Bearing Status Yes During Gait Assistive Devices Assistive Device None,Gait Belt Orthotic/Prosthetic Devices or Brace: Yes Gait Deviations General Gait Pattern Antalgic,Decreased Stride Length,Decreased Feet Clearance,Wide Based Gait Factors Limiting Gait Function Factors Limiting Gait Function Decreased Activity Tolerance, Decreased Strength,Limited Range of Motion,Pain Comments Gait Comments see mobility comments Stair Climbing Assessment Evaluation Level of Assist On Stairs Contact Guard Assistance,1 Person Assistance Devices Stair Climbing Assistive Devices None Technique/Endurance Stair Climbing Direction Ascend and Descend Stair Climbing Technique Step Over Step Number of Steps Climbed 3 Stair Climbing Set # Repetitions (reps) 1 Comments Stair Climbing Comments see mobility comments PT-Balance Assessment Sitting Balance and Reactions Static Sitting Balance Ability Normal Dynamic Sitting Balance Ability Normal Standing Balance and Reactions Static Standing Balance Ability Normal Dynamic Standing Balance Ability Good Device Used no AD Comments Other Balance Tests/Deviations/Treatment Instructed pt to take care : with soft collar on due to restriction in lower field of vision. M5 PT-IP Objective Assessments Start: 09/04/22 13:34 Freq: NEEDED Status: Discharge Protocol: Document 09/04/22 15:25 AW (Rec: 09/04/22 15:59 AW [id number]) Orientation Orientation/Cognition Level of Alertness Alert Orientation Name,Day of Week,Place, Situation Safety Awareness Understands Safety Issues Memory Description No Deficits Noted Gross Range of Motion Lower Extremity ROM Assessment Within Functional Limits Strength Lower Extremity Strength Assessment Within Functional Limits Sensation Assessment Sensation Gross Sensation WNL Comments Sensation Comments Pt denies mumbness in UE's M6 PT-IP Treatment Start: 09/04/22 13:34 Freq: NEEDED Status: Discharge Protocol: Document 09/05/22 09:28 SP (Rec: 09/05/22 17:06 SP [id number]) Physical Therapy Treatment Education Education Provided Precautions,Post-Op Packet, Safety Other Treatments Other Treatment Performed Educated pt on post-op precautions and use of soft collar, including donning and doffing. M7 PT-IP Assessment and Plan Start: 09/04/22 13:34 Freq: NEEDED Status: Discharge Protocol: Document 09/05/22 09:28 SP (Rec: 09/05/22 17:06 SP [id number]) PT Summary Assessment and Plan Potential Rehabilitation Potential Excellent Status of Condition at Evaluation Evolving Summary Impairments Pain,ROM,Balance,Sensation,Bed Mobility,Transfers,Gait Progress Towards Goals Progressing Toward Goals Assessment Summary Pt sBA during bed mob, SBA/ CGA during gait and stair provided by no AD required. Pt is ok to return home with to assist her needed when medically cleared. Goals Bed Mobility Goal Independent Transfer Goal Independent Gait Goal Independent Gait Distance 200 Other Goals -up/down 3 steps no rail SBA Frequency of Treatment Frequency Of Treatment Twice a Day Treatment Plan Physical Therapy Treatment Plan Bed Mobility Training,Transfer Training,Gait Training, Therapeutic Exercise,Balance Retraining,Post Op Education, Discharge Planning,Hot or Cold Pack,Neuromuscular Re-ed Other Recommendations and Next Treatment dynamic gait, balance Focus activities. Precautions Cervical Spine Precautions Soft Collar for Comfort,Soft Collar at all Times,No Heavy Lifting,Log Roll Recommendations To Nursing Amount of Assist Needed Standby Assistance Discharge Recommendations PT Discharge Recommendations Home with Assistance, Outpatient PT Transportation Needs at Discharge Private Vehicle
--- NOTE | 2022-09-05 10:57 | PC.NURSE ---
Discharge Note Patient A&O, VSS, RA, pain appropriately controlled with PRN medication. Patient agreeable to discharge plan. Discharge packet reviewed with patient, all questions/concerns addressed. PIV discontinued. Dressing changed and reinforced. Patient able to dress self and pack all belongings. Patient taken down via wheelchair to POV.
== END 2022-09-05 10:15 | disposition home or self-care (01) | DRG 473 ==
PROVIDERS: Admitting Provider Orthopaedic Surgery Orthopaedic Surgery of the Spine; PCP Family Medicine; Referring Provider Orthopaedic Surgery Orthopaedic Surgery of the Spine; Visit Provider Orthopaedic Surgery Orthopaedic Surgery of the Spine
PROC: 0RG20A0 Fusion of 2 or more Cervical Vertebral Joints with Interbody Fusion Device, Anterior Approach, Anterior Column, Open Approach (ICD-10-PCS; principal; 2022-09-04 07:45)
DX: M47.22 Other spondylosis with radiculopathy, cervical region (principal); M48.02 Spinal stenosis, cervical region; M43.22 Fusion of spine, cervical region; M50.10 Cervical disc disorder with radiculopathy, unspecified cervical region; E07.9 Disorder of thyroid, unspecified; Z20.822 Contact with and (suspected) exposure to COVID-19; Z87.891 Personal history of nicotine dependence
CPT/HCPCS: 36415; 72040; 76000; 82962; 97116; 97162; 97165; C1776; C1713; J0690; J1100; J1170; J2250; J2405; J2704; J3010